=== PATIENT | male | born 1965 | race Caucasian/White ===

== ENCOUNTER 2018-02-05 11:29 | Emergency (ER) | payer OTHER ==
[~2018-02-05] VITALS: Ht 188 cm; Wt 92.5 kg
[2018-02-05 11:36] VITALS: TEMP 36.9; Ht 188 cm; Wt 92.5 kg
[2018-02-05 11:40] VITALS: O2SAT 98
--- NOTE | 2018-02-05 11:52 | EMERGENCY ROOM VISIT NOTE ---
History Report prepared by Tricia: Mitra Vieyra Under the Supervision of: Dr. Hieu Sánchez M.D. 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 Positive chest pain. Negative fevers, nausea, vomiting, bloody urine, recent physical trauma. He is accompanied by his who reports that there was an intruder living in their garage that they discovered last week. Then 3 days ago, they discovered that their chickens are gone which worsened her 's anxiety as he thought the intruder had stolen them. The next day, the patient reports he woke up in a puddle of his own urine and had pain in the middle of his back. Since then, he has increased his water intake and felt better. However, he went to work today and his pain has worsened. Movement worsens his pain. The patient currently takes baby aspirin and is an everyday smoker. Source of History: patient Onset: 3 days lift operator Position: back Quality: other (back pain) Timing: worsening Associated Symptoms: + chest pain, No fevers, No nausea, No vomiting Note: Negative bloody urine, recent physical trauma Review of Systems See HPI for pertinent positives and negatives. A total of ten systems were reviewed and were otherwise negative. Past Medical & Surgical Medical Problems: (1) No significant past medical history Family History No pertinent family history Social History Smoking Status: Current Every Day Smoker Marital Status: Housing Status: lives with significant other Occupation Status: employed Current/Historical Medications Scheduled Aspirin (Aspirin Ec), 81 MG PO DAILY Glucosamine Sulfate (Glucosamine), 1 TAB PO DAILY Multivitamin (Multivitamin), 1 TAB PO DAILY Allergies Coded Allergies: No Known Allergies (Unverified , 02/05/18) Physical Exam Vital Signs Date Time Temp Pulse Resp B/P (MAP) Pulse Ox O2 Delivery O2 Flow Rate FiO2 02/05/18 13:48 86 16 133/72 96 Room Air 02/05/18 12:26 85 02/05/18 12:18 82 18 134/71 97 Room Air 02/05/18 11:40 98 Room Air 02/05/18 11:36 36.9 92 20 146/95 98 Room Air Physical Exam GENERAL: Awake, alert, well-appearing, NAD HENT: Normocephalic, atraumatic. EYES: Normal conjunctiva. Sclera non-icteric. PERRL. No anisocoria. NECK: Supple. No nuchal rigidity. FROM. No CVA TTP. RESPIRATORY: CTAB, no rhonchi, wheezing, crackles CARDIAC: RRR, no MRG ABDOMEN: Soft, NTND, BS+ MSK: No chest wall TTP, no LE edema. Negative straight leg raise bilaterally. No midline back pain. No hip pain. NEURO: GCS 15, CN 2-12 intact, moves all 4s on command. No saddle anesthesia SKIN: No rash or jaundice noted. Medical Decision & Procedures ER Provider Diagnostic Interpretation: Radiology results as stated below per my review and radiologist interpretation: CHEST ONE VIEW PORTABLE HISTORY: 52 years-old Male Back pain acute back pain COMPARISON: None available TECHNIQUE: Portable AP view of the chest FINDINGS: Cardiomediastinal and hilar silhouettes are within normal limits. Linear subsegmental retrocardiac opacities suggest areas of atelectasis or scarring. There is no pneumothorax, pleural effusion, focal airspace consolidation or overt pulmonary edema. The bones of the chest appear grossly intact. IMPRESSION: No acute process. The above report was generated using voice recognition software. It may contain grammatical, syntax or spelling errors. Electronically signed by: Abhishek Ashton M.D. 02/05/2018 12:[address] OF THE ABDOMEN AND PELVIS WITHOUT CONTRAST, STONE PROTOCOL CLINICAL HISTORY: Bilateral upper flank pain. COMPARISON STUDY: None. TECHNIQUE: Helical axial images of the abdomen and pelvis were obtained without IV or oral contrast according to renal stone protocol. A dose lowering technique was utilized adhering to the principles of ALARA. FINDINGS: Subpleural lower lung opacities reflect atelectasis. No renal, ureteral or bladder calculi are present. There is no hydronephrosis or hydroureter. Evaluation of the remainder of the abdomen and pelvis is suboptimal on this unenhanced exam. The liver, spleen, adrenal glands and pancreas are normal. There is no peripancreatic or pericholecystic infiltration. There is no biliary or pancreatic ductal dilatation. Caliber of small and large bowel is normal. The appendix is normal. A moderate amount stool within the cecum and adjacent colon is noted. There is no ascites or lymphadenopathy. Pelvic calcifications reflect phleboliths. There are no suspicious osseous lesions. IMPRESSION: 1. No urinary calculi or hydronephrosis. 2. No acute process within the abdomen or pelvis on unenhanced exam. Normal appendix. No bowel obstruction. 3. Moderate amount of stool within the cecum and ascending colon. Electronically signed by: Dalton Cheung M.D. 02/05/2018 12:59 PM Laboratory Results 02/05/18 12:10 Red Blood Count 4.78, Mean Corpuscular Volume 85.8, Mean Corpuscular Hemoglobin 31.0, Mean Corpuscular Hemoglobin Concent 36.1, Mean Platelet Volume 10.6, Neutrophils (%) (Auto) 76.2, Lymphocytes (%) (Auto) 17.3, Monocytes (%) (Auto) 6.2, Eosinophils (%) (Auto) 0.1, Basophils (%) (Auto) 0.1, Neutrophils # (Auto) 5.73, Lymphocytes # (Auto) 1.30, Monocytes # (Auto) 0.47, Eosinophils # (Auto) 0.01, Basophils # (Auto) 0.01 02/05/18 12:10 Test 02/05/18 11:45 02/05/18 12:10 Urine Color YELLOW Urine Appearance CLEAR (CLEAR) Urine pH 6.0 (4.5-7.5) Urine Specific [place] 1.009 (1.000-1.030) Urine Protein NEG (NEG) Urine Glucose (UA) NEG (NEG) Urine Ketones NEG (NEG) Urine Occult Blood NEG (NEG) Urine Nitrite NEG (NEG) Urine Bilirubin NEG (NEG) Urine Urobilinogen NEG (NEG) Urine Leukocyte Esterase NEG (NEG) Urine WBC (Auto) 0 /hpf (0-5) Urine RBC (Auto) 0-4 /hpf (0-4) Urine Hyaline Casts (Auto) 0 /lpf (0-5) Urine Epithelial Cells (Auto) 0-5 /lpf (0-5) Urine Bacteria (Auto) NEG (NEG) White Blood Count 7.53 K/uL (4.8-10.8) Red Blood Count 4.78 M/uL (4.7-6.1) Hemoglobin 14.8 g/dL (14.0-18.0) Hematocrit 41.0 % (42-52) Mean Corpuscular Volume 85.8 fL (80-100) Mean Corpuscular Hemoglobin 31.0 pg (25-34) Mean Corpuscular Hemoglobin Concent 36.1 g/dl (32-36) Platelet Count 231 K/uL (130-400) Mean Platelet Volume 10.6 fL (7.4-10.4) Neutrophils (%) (Auto) 76.2 % Lymphocytes (%) (Auto) 17.3 % Monocytes (%) (Auto) 6.2 % Eosinophils (%) (Auto) 0.1 % Basophils (%) (Auto) 0.1 % Neutrophils # (Auto) 5.73 K/uL (1.4-6.5) Lymphocytes # (Auto) 1.30 K/uL (1.2-3.4) Monocytes # (Auto) 0.47 K/uL (0.11-0.59) Eosinophils # (Auto) 0.01 K/uL (0-0.5) Basophils # (Auto) 0.01 K/uL (0-0.2) RDW Standard Deviation 40.1 fL (36.4-46.3) RDW Coefficient of Variation 12.7 % (11.5-14.5) Immature Granulocyte % (Auto) 0.1 % Immature Granulocyte # (Auto) 0.01 K/uL (0.00-0.02) Prothrombin Time 10.8 SECONDS (9.0-12.0) Prothromb Time International Ratio 1.0 (0.9-1.1) Activated Partial Thromboplast Time 24.1 SECONDS (21.0-31.0) Partial Thromboplastin Ratio 0.9 Anion Gap 7.0 mmol/L (3-11) Est Creatinine Clear Calc Drug Dose 101.7 ml/min Estimated GFR () 100.6 Estimated GFR (Non- 86.8 BUN/Creatinine Ratio 11.2 (10-20) Calcium Level 8.8 mg/dl (8.5-10.1) Laboratory results reviewed by me Medications Administered Medications (Trade) Dose Ordered Sig/Jd Route Start Time Stop Time Status Last Admin Dose Admin Acetaminophen (Tylenol Tab) 1,000 mg NOW STAT PO 02/05/18 11:53 02/05/18 11:56 DC 02/05/18 12:14 1,000 MG Ketorolac Tromethamine (Toradol Inj) 30 mg NOW STAT IV 02/05/18 11:53 02/05/18 11:56 DC 02/05/18 12:15 30 MG ECG Per My Interpretation Indication: back/shoulder pain Rate (beats per minute): 82 Rhythm: normal sinus Findings: no acute ischemic change, no ectopy, other (normal intervals, normal axis) ED Course 1145: The patient was evaluated in room A11. A complete history and physical exam was performed. 1228: I checked on the patient at this time. He is feeling slightly better. 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 Positive chest pain. Negative fevers, nausea, vomiting, bloody urine, recent physical trauma. Prior records/ancillary studies reviewed. Triage Nursing notes reviewed. Additional history obtained from the patient's . The patient's history was concerning for back pain. Differential diagnosis: Etiologies such as musculoskeletal, disc herniation, fracture, aortic disease, metastatic disease, cord compression, discitis, infection, renal colic, gastrointestinal, acute exacerbation of chronic back pain, sciatica, cauda equina, as well as others were entertained. Patient was seen and evaluated the bedside. Patient had been complaining some upper back pain that was bilateral in nature. Patient does work for [employer] and is due for amount of heavy lifting. Patient states that he did lift his 90 pound dog in the day which may have caused him discomfort. Patient does not wear a weight belt. The patient denies any high risk red flag signs such as fever, Weight loss, cancer history, saddle anesthesia. The patient otherwise looks well. The patient does not have any reproducible back discomfort. The patient does not have a history of kidney stones. Patient has not had jean-pierre hematuria. Patient did blood work completed, chest x-ray, EKG, CT abdomen pelvis noncontrast. Patient's blood work is fairly unremarkable. Patient had normal kidney function. Patient's urinalysis did not show infection but blood. Patient CT of the abdomen pelvis did not show any evidence of masses or stones. The patient was feeling improved after Toradol. I believe he may have some back strain and that he should continue to do some light stretching and exercises as well as take Motrin and Tylenol. Patient was also told to listen to his body and not over exert himself. Patient was also told he may benefit from a weight belt. Patient was told that he does have some hematuria. Given the patient's smoking history he was told that he could have some renal disease and should follow-up with his PCP for recheck and that if this continues he may benefit from seeing a urologist. EKG was nonischemic. Do not believe this is referred chest pain. Do not believe that this is a dissection and is located paraspinal along the posterior back. We did discuss possibility of maybe there is a very small kidney stone. Passed kidney stone. Patient was counseled on smoking cessation. Patient was deemed suitable and safe for outpatient follow- up and treatment at this time. Patient was given strict follow-up, discharge, and return precautions. All questions were answered. Patient was deemed suitable for outpatient follow-up at this time. Patient agreed with the plan of care and was safely discharged home. Medication Reconcilliation Current Medication List: was personally reviewed by me Blood Pressure Screening Patient's blood pressure: Elevated blood pressure Blood pressure disposition: Elevated BP felt to be situational Impression Primary Impression: Back pain Additional Impressions: Hematuria Encounter for smoking cessation counseling Scribe Attestation The scribe's documentation has been prepared under my direction and personally reviewed by me in its entirety. I confirm that the note above accurately reflects all work, treatment, procedures, and medical decision making performed by me. Departure Information Dispostion Home / Self-Care Forms HOME CARE DOCUMENTATION FORM, IMPORTANT VISIT INFORMATION Patient Instructions Back Pain Relieve, ED Hematuria, My [facility] Additional Instructions Please return to the emergency department if you have worsening or recurrent symptoms not amenable to at-home treatment. Please call for a follow-up appointment with her primary care physician. Please take your medications as prescribed. If you have other concerns and/or complaints please feel free to also call your primary care physician's office or return the ED for further evaluation, management, and treatment. You may take 400 mg Ibuprofen every 6 hours as needed for pain/fever with food unless told by your physician not to take NSAIDs. You may take tylenol 650 mg every 6 hours as needed for pain/fever unless told by your physician to not take it or have liver problems. You may take motrin and tylenol separately or at the same time. Take your medications as prescribed. If taking an antibiotic consider taking a probiotic and/or eating yogurt, but at the least, please take with food as it can cause upset stomach. You have been examined and treated today on an emergency basis only. This is not a substitute for, or an effort to provide, complete comprehensive medical care. It is impossible to recognize and treat all injuries or illnesses in a single emergency department visit. It is therefore important that you follow up closely with [facility], your PCP, and/or your specialist(s). Call as soon as possible for an appointment. Thank you for your time and consideration. I look forward to speaking with you again soon. Please don't hesitate to call us if you have any questions. Problem Qualifiers Primary Impression: Back pain Back pain location: thoracic back pain Chronicity: acute Back pain laterality: bilateral Qualified Codes: M54.6 - Pain in thoracic spine Additional Impressions: Hematuria Hematuria type: unspecified type Qualified Codes: R31.9 - Hematuria, unspecified
[2018-02-05] MEDS ORDERED: ACETAMINOPHEN 500 MG TAB PO STA (11:53)
[2018-02-05] MEDS ORDERED: KETOROLAC TROMETHAMINE 30 MG/ML VIAL IV STA (11:53)
--- NOTE | 2018-02-05 12:11 | DIAGNOSTIC IMAGING REPORT ---
CHEST ONE VIEW PORTABLE HISTORY: 52 years-old Male Back pain acute back pain COMPARISON: None available TECHNIQUE: Portable AP view of the chest FINDINGS: Cardiomediastinal and hilar silhouettes are within normal limits. Linear subsegmental retrocardiac opacities suggest areas of atelectasis or scarring. There is no pneumothorax, pleural effusion, focal airspace consolidation or overt pulmonary edema. The bones of the chest appear grossly intact. IMPRESSION: No acute process. The above report was generated using voice recognition software. It may contain grammatical, syntax or spelling errors. Electronically signed by: Abhishek Ashton M.D. 02/05/2018 12:10 PM Dictated Date/Time: 02/05/2018 12:08 PM
[2018-02-05 12:23] LABS: BASO % 0.1 %; BASO ABS # 0.01 K/uL (0-0.2); EOS % 0.1 %; EOS ABS # 0.01 K/uL (0-0.5); HEMOGLOBIN 14.8 g/dL (14.0-18.0); IG# 0.01 K/uL (0.00-0.02); LYMPH % 17.3 %; MEAN CELL VOLUME 85.8 fL (80-100); MEAN CORPUSCULAR HGB CONC 36.1 g/dl (32-36); MEAN PLATELET VOLUME 10.6 fL (7.4-10.4); MONO % 6.2 %; MONO ABS # 0.47 K/uL (0.11-0.59); NEUT % 76.2 %; NEUT ABS # 5.73 K/uL (1.4-6.5); PLATELET COUNT 231 K/uL (130-400); RED CELL DISTRIBUTION WIDTH CV 12.7 % (11.5-14.5); RED CELL DISTRIBUTION WIDTH SD 40.1 fL (36.4-46.3); WHITE BLOOD COUNT 7.53 K/uL (4.8-10.8)
[2018-02-05] MEDS ORDERED: ASPI81TA28 PO (12:29)
[2018-02-05] MEDS ORDERED: MULT-506 PO (12:29)
[2018-02-05] MEDS ORDERED: GLUC500C4 PO (12:29)
[2018-02-05 12:32] LABS: PTT PATIENT 24.1 SECONDS (21.0-31.0)
[2018-02-05 12:44] LABS: CALCIUM 8.8 mg/dl (8.5-10.1)
--- NOTE | 2018-02-05 13:00 | DIAGNOSTIC IMAGING REPORT ---
CT OF THE ABDOMEN AND PELVIS WITHOUT CONTRAST, STONE PROTOCOL CLINICAL HISTORY: Bilateral upper flank pain. COMPARISON STUDY: None. TECHNIQUE: Helical axial images of the abdomen and pelvis were obtained without IV or oral contrast according to renal stone protocol. A dose lowering technique was utilized adhering to the principles of ALARA. FINDINGS: Subpleural lower lung opacities reflect atelectasis. No renal, ureteral or bladder calculi are present. There is no hydronephrosis or hydroureter. Evaluation of the remainder of the abdomen and pelvis is suboptimal on this unenhanced exam. The liver, spleen, adrenal glands and pancreas are normal. There is no peripancreatic or pericholecystic infiltration. There is no biliary or pancreatic ductal dilatation. Caliber of small and large bowel is normal. The appendix is normal. A moderate amount stool within the cecum and adjacent colon is noted. There is no ascites or lymphadenopathy. Pelvic calcifications reflect phleboliths. There are no suspicious osseous lesions. IMPRESSION: 1. No urinary calculi or hydronephrosis. 2. No acute process within the abdomen or pelvis on unenhanced exam. Normal appendix. No bowel obstruction. 3. Moderate amount of stool within the cecum and ascending colon. Electronically signed by: Dalton Cheung M.D. 02/05/2018 12:59 PM Dictated Date/Time: 02/05/2018 12:51 PM
[2018-02-05 14:08] VITALS: BP 120/74; PULSE 102; O2SAT 97
== END 2018-02-05 14:08 | disposition home or self-care (01) ==
LOC: C.EDB 11:31 → C.EDA 14:08
DX: M54.6 Pain in thoracic spine (principal); R31.9 Hematuria, unspecified; Z71.6 Tobacco abuse counseling; Z79.82 Long term (current) use of aspirin; F17.210 Nicotine dependence, cigarettes, uncomplicated; Z79.899 Other long term (current) drug therapy